=== PATIENT | male | born 2000 | race American Indian/Alaskan Native ===

== ENCOUNTER 2021-10-25 22:49 | Emergency (ER) | payer MEDICAID ==
[2021-10-26 00:35] VITALS: BP 144/88
--- NOTE | 2021-10-26 01:24 | XRay Report ---
RIGHT TIBIA-FIBULA 2 VIEW(S) INDICATION / CLINICAL INFORMATION: leg pain COMPARISON: None available. FINDINGS: BONES / JOINT(S): No acute fracture or subluxation. No significant arthritis. Small bone fragment adj acent the lateral corner of the distal tibia at the plafond is present. SOFT TISSUES: No significant abnormality. ADDITIONAL FINDINGS: None. IMPRESSION: 1. Small displaced bone fragment lower tibia of indeterminate age. No distinct acute findings. Signer Name: Blake Johnson II, MD Signed: 10/26/2021 1:20 AM Workstation Name: [id number]
--- NOTE | 2021-10-26 03:07 | Emergency Department Report ---
ED General Adult HPI - General Chief complaint: Extremity Injury, Lower Stated complaint: RT FOOT NUMBNESS Time Seen by Provider: 10/26/21 00:50 Source: patient Mode of arrival: Ambulatory Limitations: No Limitations - History of Present Illness Initial comments: 21-year-old male presents emergency department complaining chronic recurrent right lower extremity pain abdominal etiology with associated trauma. Reports association with numbness tingling burning sensation off and on. No swelling no redness no fever, chills, sweats no No long trips no traumatic events. -: Gradual Radiation: non-radiation Severity scale (0 -10): 10 Quality: burning Consistency: constant Improves with: none Worsens with: none Associated Symptoms: denies: chest pain, cough, diaphoresis, loss of appetite, malaise, nausea/vomiting, shortness of breath, syncope, weakness Treatments Prior to Arrival: none - Related Data Allergies Allergy/AdvReac Type Severity Reaction Status Date / Time No Known Allergies Allergy Verified 10/26/21 00:35 ED Review of Systems ROS: Stated complaint: RT FOOT NUMBNESS Other details as noted in HPI Comment: All other systems reviewed and negative ED Past Medical Hx - Past Medical History Previous Medical History?: No - Surgical History Past Surgical History?: No ED Physical Exam - General Limitations: No Limitations General appearance: alert, in no apparent distress - Head Head exam: Present: atraumatic, normocephalic - Eye Eye exam: Present: normal appearance, PERRL, EOMI Pupils: Present: normal accommodation - ENT ENT exam: Present: normal exam, normal orophraynx, mucous membranes moist, TM's normal bilaterally - Neck Neck exam: Present: normal inspection, full ROM - Respiratory Respiratory exam: Present: normal lung sounds bilaterally. Absent: respiratory distress - Cardiovascular Cardiovascular Exam: Present: regular rate, normal rhythm. Absent: systolic murmur, diastolic murmur, rubs, gallop - GI/Abdominal GI/Abdominal exam: Present: soft, normal bowel sounds - Rectal Rectal exam: Present: deferred - Extremities Exam Extremities exam: Present: normal inspection, normal capillary refill, other (No palpable mass appreciated pulses 2+.). Absent: tenderness, pedal edema, joint swelling, calf tenderness - Back Exam Back exam: Present: normal inspection. Absent: CVA tenderness (R), CVA tenderness (L) - Neurological Exam Neurological exam: Present: alert, oriented X3 - Psychiatric Psychiatric exam: Present: normal affect, normal mood - Skin Skin exam: Present: warm, dry, intact, normal color. Absent: rash ED Course Vital Signs 10/26/21 00:31 Temperature 98.6 F Pulse Rate 90 Respiratory 14 Rate Blood Pressure 144/88 [Right] O2 Sat by Pulse 99 Oximetry ED Medical Decision Making - Radiology Data [facility] [address] [place] [address] XRay Report Signed Patient: NAVEED SANTANA JR MR#: [id number] : 2000 Acct:[id number] Age/Sex: 21 / M ADM Date: 10/25/21 Loc: ED Attending Dr: Ordering Physician: PATRICK JACOBO Date of Service: 10/26/21 Procedure(s): XR tibia fibula 2V RT Accession Number(s): [id number] cc: PATRICK JACOBO Fluoro Time In Minutes: RIGHT TIBIA-FIBULA 2 VIEW(S) INDICATION / CLINICAL INFORMATION: leg pain COMPARISON: None available. FINDINGS: BONES / JOINT(S): No acute fracture or subluxation. No significant arthritis. Small bone fragment adjacent the lateral corner of the distal tibia at the plafond is present. SOFT TISSUES: No significant abnormality. ADDITIONAL FINDINGS: None. IMPRESSION: 1. Small displaced bone fragment lower tibia of indeterminate age. No distinct acute findings. Signer Name: Jessica Dawson II, MD Signed: 10/26/2021 1:20 AM Workstation Name: [id number] Transcribed By: DAMIAN Dictated By: JESSICA DAWSON II, MD Electronically Authenticated By: JESSICA DAWSON II, MD Signed Date/Time: 10/26/21119 DD/ 0118 TD/TT: Critical care attestation.: If time is entered above; I have spent that time in minutes in the direct care of this critically ill patient, excluding procedure time. ED Disposition Clinical Impression: Chronic pain of right lower extremity, Chronic fracture, Avulsion fracture of ankle Disposition: 01 HOME / SELF CARE / HOMELESS Is pt being admited?: No Does the pt Need Aspirin: No Condition: Stable Instructions: How to Use Cold Therapy, [id number], Chronic Pain, Adult, Ankle Pain, Avulsion Fracture of the Foot Additional Instructions: Patient arrives emerged [place] for acute on chronic right leg pain which is atraumatic in nature. X-rays did not show any significant issues. Patient to follow-up with her primary care provider or orthopedic for further treatment and evaluation [facility] - 3-5 Days ANGÉLICA BELLAMY MD [Primary Care Provider] - 3-5 Days
== END 2021-10-26 03:10 | disposition home or self-care (01) ==
LOC: ED 22:49
DX: S82.391A Other fracture of lower end of right tibia, initial encounter for closed fracture (principal); G89.29 Other chronic pain; X58.XXXA Exposure to other specified factors, initial encounter; Y93.89 Activity, other specified; Y92.89 Other specified places as the place of occurrence of the external cause; Y99.8 Other external cause status
CPT/HCPCS: 82962; 99283